=== PATIENT | male | born 1985 | race African-American/Black ===

== ENCOUNTER 2022-12-21 20:41 | Observation (INO) | payer OTHER ==
[2022-12-21] MEDS ORDERED: ADENOSINE 6 MG/2 ML VIAL IVPUSH ONE ×2 (20:57)
[2022-12-21] MEDS ORDERED: SODIUM CHLORIDE 0.9% 500 ML INFUS.BAG IV ONE (21:10)
[2022-12-21 21:22] LABS: BASO % 0.9 % (0-2.0); EOS % 1.6 % (0-4.5); HEMATOCRIT 47.7 % (35.4-49); HEMOGLOBIN 15.9 GM/dL (11.7-16.9); MCH 29.6 pg (25.7-33.7); MCHC 33.3 g/dl (32.0-35.9); MEAN CELL VOLUME 89.1 fl (80-96); MEAN PLT VOLUME 7.4 fl (7.5-11.1); MONO % 8.1 % (3.8-10.2); NEUT % 63.4 % (42.8-82.8); PLATELET COUNT 335 10^3/uL (134-434); RBC 5.35 M/mm3 (4.00-5.60); RDW 12.8 % (11.9-15.9); WHITE BLOOD COUNT 5.3 K/mm3 (4.0-10.0)
[2022-12-21 21:32] LABS: INR 1.11 (0.83-1.09); PROTHROMBIN TIME (PATIENT) 12.9 SEC (9.7-13.0)
[2022-12-21 21:34] LABS: ACTIVATED PTT 33.8 SECONDS (25.2-36.5)
[2022-12-21 21:43] LABS: POTASSIUM 3.8 mmol/L (3.5-5.1)
[2022-12-21 21:45] LABS: CALCIUM 10.4 mg/dL (8.5-10.1)
[2022-12-21 21:46] LABS: ALBUMIN 4.4 g/dl (3.4-5.0); BLOOD UREA NITROGEN 10.2 mg/dL (7-18); MAGNESIUM 2.1 mg/dL (1.8-2.4)
[2022-12-21 21:49] LABS: CREATININE 1.3 mg/dL (0.55-1.3)
[2022-12-21 21:50] LABS: TOT PROT 7.6 g/dl (6.4-8.2)
[2022-12-21 21:51] LABS: BILIRUBIN,TOTAL 2.4 mg/dL (0.2-1)
[2022-12-22 04:34] VITALS: RESP 18
[2022-12-22 04:41] VITALS: BMI 23.8
[2022-12-22 06:50] VITALS: BP 131/66; PULSE 69; TEMP 98.7
[2022-12-22 08:11] LABS: POTASSIUM 3.6 mmol/L (3.5-5.1)
[2022-12-22 08:14] LABS: BLOOD UREA NITROGEN 8.7 mg/dL (7-18)
[2022-12-22 08:15] LABS: ALBUMIN 3.6 g/dl (3.4-5.0)
[2022-12-22 08:16] LABS: HEMOGLOBIN 14.6 GM/dL (11.7-16.9); MCH 30.1 pg (25.7-33.7); MCHC 33.8 g/dl (32.0-35.9); MEAN CELL VOLUME 89.1 fl (80-96); MEAN PLT VOLUME 7.7 fl (7.5-11.1); PLATELET COUNT 297 10^3/uL (134-434); RBC 4.83 M/mm3 (4.00-5.60); RDW 12.5 % (11.9-15.9); WHITE BLOOD COUNT 4.8 K/mm3 (4.0-10.0)
[2022-12-22 08:17] LABS: CREATININE 1.1 mg/dL (0.55-1.3)
[2022-12-22 08:18] LABS: BILIRUBIN,TOTAL 2.7 mg/dL (0.2-1); PHOSPHOROUS 3.2 mg/dL (2.5-4.9); TOT PROT 6.6 g/dl (6.4-8.2)
[2022-12-22 08:27] LABS: CALCIUM 8.4 mg/dL (8.5-10.1)
[2022-12-22] MEDS ORDERED: ENOXAPARIN NA (PORCINE) 40 MG/0.4 ML DISP.SYRIN SQ SCH (10:00)
[2022-12-22] MEDS ORDERED: metoPROLOL SUCCINATE 25 MG TAB.SR.24H (FP) PO SCH (10:00)
== END 2022-12-22 14:00 | disposition home or self-care (01) ==
LOC: JER 20:41 → JERBED 22:20 → J4W 12-22 04:21
PROVIDERS: ADMIT Internal Medicine; ATTEND Internal Medicine
PROC: 3E023GC Introduction of Other Therapeutic Substance into Muscle, Percutaneous Approach (ICD-10-PCS; principal; 2022-12-21)
PROC: 3E0337Z Introduction of Electrolytic and Water Balance Substance into Peripheral Vein, Percutaneous Approach (ICD-10-PCS; 2022-12-21)
DX: I47.10 Supraventricular tachycardia, unspecified (principal)
CPT/HCPCS: 36415; 71045-TC-FY; 80053; 80061; 83735; 84100; 84439; 84443; 84484; 85025; 85027; 85610; 85730; 86850; 86900; 86901; 93005; 93010; 93306-TC; 96372; 99285-25; G0378